=== PATIENT | female | born 1970 | race Caucasian/White ===

== ENCOUNTER 2016-07-26 09:36 | Emergency (ER) | payer OTHER ==
[2016-07-26 09:50] VITALS: BMI 25.0
--- NOTE | 2016-07-26 11:06 | PDOC ---
[id number] No Limitations - History of Present Illness Initial Comments: CHIEF COMPLAINT: 45 y/o afebrile female with PMH gastric ulcers c/o nausea and vomiting since last night. HISTORY OF PRESENT ILLNESS: The patient states her boyfriend has the same symptoms at home for the past 3 days. She states she also has some left lower abd cramping. She denies f/c, AMAYA, cough, CP, SOB, back pain, diarrhea, hematuria, dysuria. Her PCP is at [facility]. Vital signs on arrival are notable for pulse of 107 and BP of 176/96. REVIEW OF SYSTEMS: GENERAL/CONSTITUTIONAL: No fever/chills. No weakness. No weight change. HEAD, EYES, EARS, NOSE AND THROAT: No change in vision. No ear pain or discharge. No sore throat. CARDIOVASCULAR: No chest pain or shortness of breath. RESPIRATORY: No cough, wheezing, or hemoptysis. GASTROINTESTINAL: +nausea, vomiting, abd pain. No diarrhea. No constipation. GENITOURINARY: No dysuria, frequency, or change in urination. MUSCULOSKELETAL: No joint or muscle swelling or pain. No neck or back pain. SKIN: No rash or easy bruising. NEUROLOGIC: No headache, vertigo, loss of consciousness, or loss of sensation. PHYSICAL EXAM: GENERAL: The patient is awake, alert, and fully oriented, in no acute distress. She is well appearing and ambulatory. HEAD: Normal with no signs of trauma. ENT: Pupils equal, round and reactive to light, extraocular movements intact, sclera anicteric, conjunctiva clear. Mucous membranes and lips dry. LUNGS: Clear to auscultation bilaterally. Normal excursion. No respiratory distress or use of accessory muscles. CV: RRR, S1/S2, no MRG. Cap refill < 2 sec. ABDOMEN: Soft, non-distended, TTP of LLQ. Normal BS x 4. No rebound, guarding or rigidity. EXTREMITIES: Normal range of motion, no edema. NEUROLOGICAL: Normal speech, normal gait. CN II-XII grossly intact. PSYCH: Normal mood, normal affect. SKIN: Warm, dry, normal turgor, no rashes or lesions noted. <Yessi Pettit - Last Filed: 07/26/16 18:18> <Elieser Martinez - Last Filed: 07/29/16 20:19> - General Chief Complaint: Nausea/Vomiting Stated Complaint: VOMITING, ABD PAIN, SOB Time Seen by Provider: 07/26/16 10:46 Past History - Psycho/Social/Smoking Cessation Hx Suicidal Ideation: No Smoking History: Current every day smoker Number of Cigarettes Smoked Daily: 20 Information on smoking cessation initiated: No <Yessi Pettit - Last Filed: 07/26/16 18:18> <Elieser Martinez - Last Filed: 07/29/16 20:19> - Past Medical History Allergies/Adverse Reactions: Allergies Allergy/AdvReac Type Severity Reaction Status Date / Time No Known Allergies Allergy Verified 07/26/16 09:50 Home Medications: Ambulatory Orders Ondansetron [Zofran Odt -] 4 mg SL TID #9 od.tablet 07/26/16 *Physical Exam - Vital Signs Last Vital Signs Temp Pulse Resp BP Pulse Ox 98 F 107 H 18 176/96 100 07/26/16 09:47 07/26/16 09:47 07/26/16 09:47 07/26/16 09:47 07/26/16 09:47 <Yessi Pettit - Last Filed: 07/26/16 18:18> - Vital Signs Last Vital Signs Temp Pulse Resp BP Pulse Ox 98.2 F 82 16 153/90 98 07/26/16 18:50 07/26/16 18:50 07/26/16 18:50 07/26/16 18:50 07/26/16 18:50 <Elieser Martinez - Last Filed: 07/29/16 20:19> ED Treatment Course - LABORATORY CBC & Chemistry Diagram: 07/26/16 11:30 07/26/16 11:30 <Yessi Pettit - Last Filed: 07/26/16 18:18> - LABORATORY CBC & Chemistry Diagram: 07/26/16 11:30 07/26/16 11:30 - ADDITIONAL ORDERS Additional order review: 07/26/16 11:30 RBC 4.84 MCV 83.3 MCHC 32.5 RDW 18.6 H MPV 7.0 L Neutrophils % 83.3 H Lymphocytes % 9.9 Monocytes % 6.1 Eosinophils % 0.2 Basophils % 0.5 - Medications Given in the ED: ED Medications Discontinued Medications Generic Name Dose Route Start Last Admin Trade Name Светлана PRN Reason Stop Dose Admin Famotidine/Sodium Chloride 50 mls @ 100 mls/hr 07/26/16 11:07 07/26/16 11:15 Pepcid 20 Mg Premixed Ivpb - IVPB 07/26/16 11:36 100 mls/hr ONCE ONE Administration Sodium Chloride 1,000 mls @ 1,000 mls/hr 07/26/16 11:07 07/26/16 11:15 Normal Saline - IV 07/26/16 12:06 1,000 mls/hr ASDIR STA Administration Metoclopramide HCl 10 mg 07/26/16 13:04 07/26/16 14:00 Reglan Injection - IVPUSH 07/26/16 13:05 10 mg ONCE ONE Administration Ondansetron HCl 4 mg 07/26/16 11:07 07/26/16 11:15 Zofran Injection IVPUSH 07/26/16 11:08 4 mg ONCE ONE Administration <Elieser Martinez - Last Filed: 07/29/16 20:19> Medical Decision Making - Medical Decision Making A/P: 45 y/o afebrile female with signs and symptoms of gastroenteritis. Plan is as follows: 1. UA/hcg 2. Labs 3. IV fluids 4. IV zofran and pepcid 5. Reassess elevated WBC count with a left shift. Pt still feels nauseous. Ordered reglan Ordered CT scan abd/pelvis CT scan abd/pelvis IMPRESSION: No evidence of acute diverticulitis. Minimal to mild right perirenal soft tissue stranding is noted adjacent to the lower pole laterally which could be on a chronic basis given the provided history. The right kidney itself demonstrates no discrete abnormality. Gave patient her results. She states she was able to tolerate drinking liquids without vomiting and feels better. She is no longer tachycardic. Will discharge to home with dx of gastroenteritis and rx for zofran. Suggested she continue drinking plenty of fluids and slowly reintroduce bland foods. Pt instructed to return to the ER immediately with any worsening or concerning symptoms, including fever. The patient verbalizes understanding of all instructions, has no further questions and is awaiting discharge. <Yessi Pettit - Last Filed: 07/26/16 18:18> - Medical Decision Making 07/29/16 20:19 The patient was seen and evaluated in conjunction with AUSTEN Pettit under my direct supervision, ancillary studies were reviewed. I agree with the plan as outlined by AUSTEN Pettit . <Elieser Martinez - Last Filed: 07/29/16 20:19> *DC/Admit/Observation/Transfer <Yessi Pettit - Last Filed: 07/26/16 18:18> <Elieser Martinez - Last Filed: 07/29/16 20:19> Diagnosis at time of Disposition: Gastroenteritis - Discharge Dispostion Disposition: HOME Condition at time of disposition: Improved - Prescriptions Prescriptions: Ondansetron [Zofran Odt -] 4 mg SL TID #9 od.tablet - Referrals Referrals: STAFF,NOT ON [Primary Care Provider] - - Patient Instructions Printed Discharge Instructions: DI for Viral Gastroenteritis -- Adult, Gastroenteritis Diet Additional Instructions: Discharge Instructions: -Take zofran if needed for nausea/vomiting -Continue drinking fluids at home to rehydrate -Slowly reintroduce bland foods if tolerated -REturn to the ER immediately with any worsening or concerning symptoms, including fever.
[2016-07-26] MEDS ORDERED: SODIUM CHLORIDE 1,000 ML IV STA (11:07)
[2016-07-26] MEDS ORDERED: ONDANSETRON 4 MG/2 ML VIAL IVPUSH ONE (11:07)
[2016-07-26] MEDS ORDERED: FAMOTIDINE 20 MG/50 ML IVPB 50 ML IVPB ONE ×2 (11:07→11:23)
[2016-07-26] MEDS ORDERED: ONDANSETRON 4 MG/2 ML VIAL ONE (11:23)
[2016-07-26 11:44] LABS: BASOPHIL 0.5 % (0-2.0); EOSINOPHIL 0.2 % (0-4.5); MCH 27.1 pg (25.7-33.7); MCHC 32.5 g/dl (32.0-36.0); MEAN CELL VOLUME 83.3 fl (80-96); NEUTROPHILS 83.3 % (42.8-82.8); PLATELET COUNT 494 K/MM3 (134-434); RDW 18.6 % (11.6-15.6); WHITE BLOOD COUNT 17.8 K/mm3 (4.0-10.0)
[2016-07-26 11:51] LABS: URINE APPEARANCE CLOUDY; URINE BILIRUBIN NEGATIVE (NEGATIVE); URINE BLOOD NEGATIVE (NEGATIVE); URINE COLOR YELLOW; URINE GLUCOSE (UA) NEGATIVE (NEGATIVE); URINE KETONE NEGATIVE (NEGATIVE); URINE NITRITE NEGATIVE (NEGATIVE); URINE UROBILINOGEN NEGATIVE E.U./dl (0.2-1.0)
[2016-07-26 11:52] LABS: URINE LEUK ESTERASE TRACE (NEGATIVE); URINE PROTEIN 2+ (NEGATIVE)
[2016-07-26 11:54] LABS: URINE BACTERIA RARE /hpf (NONE SEEN); URINE MUCUS RARE; URINE RBC 2 /hpf (0-3); URINE WBC 11 /hpf (3-5)
[2016-07-26 12:16] LABS: ALBUMIN 4.3 g/dl (3.4-5.0); ALK PHOS 133 U/L (45-117); ANION GAP 10 (8-16); BILIRUBIN,TOTAL 0.7 mg/dL (0.2-1.0); CO2 33 mmol/L (21-32); CREATININE 0.9 mg/dL (0.55-1.02); GLUCOSE,RANDOM 95 mg/dL (74-106); SGOT/AST 22 U/L (15-37); SGPT/ALT 37 U/L (12-78); TOT PROT 8.3 g/dl (6.4-8.2)
[2016-07-26] MEDS ORDERED: METOCLOPRAMIDE HCL INJECTION 10 MG/2 ML VIAL IVPUSH ONE (13:04)
[2016-07-26] MEDS ORDERED: METOCLOPRAMIDE HCL INJECTION 10 MG/2 ML VIAL ONE (13:59)
[2016-07-26 19:02] VITALS: BP 153/90; PULSE 82; TEMP 98.2
== END 2016-07-26 18:55 | disposition home or self-care (01) ==
LOC: JER 09:36
PROC: 3E033GC Introduction of Other Therapeutic Substance into Peripheral Vein, Percutaneous Approach (ICD-10-PCS; principal; 2016-07-26)
PROC: 3E033GC Introduction of Other Therapeutic Substance into Peripheral Vein, Percutaneous Approach (ICD-10-PCS; 2016-07-26)
DX: K52.9 Noninfective gastroenteritis and colitis, unspecified (principal); Z87.19 Personal history of other diseases of the digestive system
CPT/HCPCS: 36415; 74177-TC; 80053; 81003; 81015; 83690; 84703; 85025; 99282-25; Q9967